=== PATIENT | female | born 1970 | race Hispanic/Latino ===

== ENCOUNTER 2020-04-02 12:16 | Observation (INO) | payer BC ==
[~2020-04-02] VITALS: Ht 152.4 cm; Wt 100.1 kg
[2020-04-02 12:51] LABS: BASOPHILS % (AUTO) 0.4 % (0.0-5.0); EOSINOPHILS % (AUTO) 2.1 % (0.0-8.0); HEMATOCRIT 42.2 % (36-48); LYMPHOCYTES % (AUTO) 35.7 % (21.0-51.0); MEAN CORPUSCULAR HEMOGLOBIN 27.8 pg (27.0-33.0); MONOCYTES % (AUTO) 5.6 % (3.0-13.0); NEUTROPHILS % (AUTO) 55.9 % (40.0-77.0); PLATELET COUNT (AUTO) 404 K/uL (130-400); RED BLOOD CELL COUNT(AUTO) 4.85 MIL/uL (4.00-5.50); RED CELL DISTRIBUTION WIDTH 13.3 % (11.0-15.5); WHITE BLOOD COUNT (AUTO) 11.8 K/uL (4.8-10.8)
[2020-04-02] MEDS ORDERED: ASPIRIN 325 MG TABLET ONE (13:08)
[2020-04-02 13:12] LABS: CREATININE 0.8 mg/dL (0.5-1.5); POTASSIUM 3.8 mmol/L (3.5-5.1)
[2020-04-02 13:18] LABS: ALBUMIN 3.7 g/dL (3.5-5.0); BILIRUBIN,TOTAL 0.3 mg/dL (0.2-1.0); TOTAL PROTEIN, SERUM 8.1 g/dL (6.0-8.3)
[2020-04-02 13:29] LABS: APPEARANCE,URINE Clear (CLEAR); BILIRUBIN,URINE Negative (NEGATIVE); COLOR,URINE Yellow (YELLOW); GLUCOSE, URINE (UA) Negative (NEGATIVE); KETONES,URINE Negative (NEGATIVE); LEUKOCYTE ESTERASE ,URINE Negative (NEGATIVE); NITRATE,URINE Negative (NEGATIVE); OCCULT BLOOD,URINE Negative (NEGATIVE); PH,URINE 7.5 (5.0-8.0); PROTEIN,URINE Negative (NEGATIVE); UROBILINOGEN,URINE 0.2 mg/dL (0.2-1.0)
[2020-04-02 13:33] LABS: INR 1.04 (0.85-1.15); PROTHROMBIN TIME 11.3 SEC (9.6-11.6)
[2020-04-02 13:34] LABS: PARTIAL THROMBOPLASTIN TIME 30.5 SEC (26.3-35.5)
[2020-04-02 13:38] LABS: AMPHET/METH SCREEN,URINE NEGATIVE (NEGATIVE); BARBITURATE SCREEN, URINE NEGATIVE (NEGATIVE); BENZODIAZEPINES SCREEN,URINE NEGATIVE (NEGATIVE); CANNABINOID SCREEN,URINE NEGATIVE (NEGATIVE); COCAINE SCREEN,URINE NEGATIVE (NEGATIVE); OPIATE SCREEN,URINE NEGATIVE (NEGATIVE); PHENCYCLIDINE SCREEN,URINE NEGATIVE (NEGATIVE)
[2020-04-02] MEDS ORDERED: NITROGLYCERIN 1GM OINT 1 INCH/1GM TD ONE (13:55)
[2020-04-02] MEDS ORDERED: METOPROLOL TARTRATE 25 MG TAB PO SCH (15:45)
[2020-04-02] MEDS ORDERED: MORPHINE 2 MG SYG IVP PRN (15:45)
[2020-04-02] MEDS ORDERED: ATORVASTATIN 20 MG TABLET PO SCH (15:45)
[2020-04-02] MEDS: NITROGLYCERIN 1GM OINT 1 INCH/1GM TD SCH ×2 (15:45→21:45)
[2020-04-02] MEDS ORDERED: LACTULOSE 20 GM/30 ML UDCUP PO PRN (16:00)
[2020-04-02] MEDS ORDERED: NITROGLYCERIN 0.4 MG SL TAB SL PRN (16:00)
[2020-04-02] MEDS ORDERED: ONDANSETRON 4MG INJ IV PRN (16:00)
[2020-04-02] MEDS ORDERED: ACETAMINOPHEN 325 MG TAB PO PRN (16:00)
[2020-04-02] MEDS ORDERED: ACETAMINOPHEN WITH CODEINE 1 TAB TAB PO PRN (16:00)
[2020-04-02 16:10] LABS: HEMOGLOBIN A1C 5.8 % (4.0-6.0)
[2020-04-02] MEDS: CEFTRIAXONE 1G VIAL IVP SCH (16:15)
[2020-04-02 16:23] LABS: CHOLESTEROL 252 mg/dL (<200); LDL DIRECT 154 mg/dL (0-99); TRIGLYCERIDES 111 mg/dL (30-200)
[2020-04-02] MEDS ORDERED: METOPROLOL TARTRATE 25 MG TAB ONE (16:32)
[2020-04-02] MEDS ORDERED: ATORVASTATIN 20 MG TABLET ONE ×2 (16:32→20:43)
[2020-04-02] MEDS ORDERED: ENOXAPARIN SODIUM 30 MG/0.3 ML SQ ONE (16:47)
[2020-04-02 16:51] LABS: HDL CHOLESTEROL 64 mg/dL (35-85)
[2020-04-02] MEDS ORDERED: FAMOTIDINE 20MG VIAL IV ONE (20:43)
[2020-04-02] MEDS ORDERED: ACETAMINOPHEN 325 MG TAB ONE (20:48)
[2020-04-02] MEDS: FAMOTIDINE 20MG VIAL IV SCH (21:00)
[2020-04-02] MEDS: ATORVASTATIN 20 MG TABLET PO SCH (21:00)
[2020-04-02] MEDS: METOPROLOL TARTRATE 25 MG TAB PO SCH (21:00)
[2020-04-03] MEDS: NITROGLYCERIN 1GM OINT 1 INCH/1GM TD SCH ×4 (03:45→21:45)
[2020-04-03 05:23] LABS: BASOPHILS % (AUTO) 0.5 % (0.0-5.0); EOSINOPHILS % (AUTO) 3.8 % (0.0-8.0); LYMPHOCYTES % (AUTO) 34.3 % (21.0-51.0); MEAN CORPUSCULAR HEMOGLOBIN 28.3 pg (27.0-33.0); MEAN CORPUSCULAR HGB CONC 32.1 g/dL (32.0-36.0); MEAN CORPUSCULAR VOLUME 88.1 fL (79-99); NEUTROPHILS % (AUTO) 53.2 % (40.0-77.0); PLATELET COUNT (AUTO) 388 K/uL (130-400); RED BLOOD CELL COUNT(AUTO) 4.77 MIL/uL (4.00-5.50); RED CELL DISTRIBUTION WIDTH 13.3 % (11.0-15.5); WHITE BLOOD COUNT (AUTO) 8.8 K/uL (4.8-10.8)
[2020-04-03 05:33] LABS: ALBUMIN 3.4 g/dL (3.5-5.0); BILIRUBIN,TOTAL 0.5 mg/dL (0.2-1.0); CREATININE 0.7 mg/dL (0.5-1.5); POTASSIUM 3.8 mmol/L (3.5-5.1); TOTAL PROTEIN, SERUM 7.4 g/dL (6.0-8.3)
[2020-04-03] MEDS ORDERED: NITROGLYCERIN 1GM OINT 1 INCH/1GM TD ONE ×2 (08:30→15:47)
[2020-04-03] MEDS ORDERED: ENOXAPARIN SODIUM 30 MG/0.3 ML SQ ONE (08:30)
[2020-04-03] MEDS ORDERED: ASPIRIN 81MG CHEW TAB ONE (08:30)
[2020-04-03] MEDS ORDERED: FAMOTIDINE 20MG VIAL IV ONE ×2 (08:31→21:33)
[2020-04-03] MEDS ORDERED: METOPROLOL TARTRATE 25 MG TAB ONE (08:31)
[2020-04-03] MEDS: METOPROLOL TARTRATE 25 MG TAB PO SCH ×2 (09:00→21:00)
[2020-04-03] MEDS: ENOXAPARIN SODIUM 30 MG/0.3 ML SQ SCH (09:00)
[2020-04-03] MEDS: FAMOTIDINE 20MG VIAL IV SCH ×2 (09:00→21:00)
[2020-04-03] MEDS: ASPIRIN 81MG CHEW TAB PO SCH (09:00)
[2020-04-03] MEDS ORDERED: ACETAMINOPHEN 325 MG TAB ONE ×3 (10:09→21:33)
[2020-04-03] MEDS ORDERED: GABA300S PO (14:20)
[2020-04-03] MEDS ORDERED: MONT10TA21 PO (14:20)
[2020-04-03] MEDS ORDERED: ESOM20CA31 PO (14:20)
[2020-04-03] MEDS ORDERED: LISI20TA24 PO (14:20)
[2020-04-03] MEDS ORDERED: LORA5SOL62 PO (14:20)
[2020-04-03] MEDS ORDERED: ASPI-988 PO (14:20)
[2020-04-03] MEDS ORDERED: CEFTRIAXONE 1G VIAL ONE (15:47)
[2020-04-03] MEDS ORDERED: 0.9%NACL 50ML 50 ML IV ONE (15:49)
[2020-04-03] MEDS ORDERED: REGADENOSON 0.4 MG/5 ML PF SYG IVP SCH (16:00)
[2020-04-03] MEDS: CEFTRIAXONE 1G VIAL IVP SCH (16:15)
[2020-04-03] MEDS ORDERED: ONDANSETRON 4MG INJ ONE (19:47)
[2020-04-03] MEDS ORDERED: 0.9% NACL 500ML IV.SOLN 500 ML IV ONE (19:48)
[2020-04-03] MEDS: ATORVASTATIN 20 MG TABLET PO SCH (21:00)
[2020-04-03] MEDS ORDERED: 0.9%NACL 1000ML 1,000 ML IV ONE (21:20)
[2020-04-03] MEDS ORDERED: ATORVASTATIN 20 MG TABLET ONE (21:32)
[2020-04-03 23:00] VITALS: BP 126/66
[2020-04-04] MEDS: NITROGLYCERIN 1GM OINT 1 INCH/1GM TD SCH (03:22)
[2020-04-04 03:50] VITALS: BP 92/62
[2020-04-04 04:02] LABS: BASOPHILS % (AUTO) 0.5 % (0.0-5.0); EOSINOPHILS % (AUTO) 2.9 % (0.0-8.0); HEMATOCRIT 41.9 % (36-48); LYMPHOCYTES % (AUTO) 35.5 % (21.0-51.0); MEAN CORPUSCULAR HEMOGLOBIN 28.5 pg (27.0-33.0); NEUTROPHILS % (AUTO) 53.9 % (40.0-77.0); PLATELET COUNT (AUTO) 357 K/uL (130-400); RED BLOOD CELL COUNT(AUTO) 4.71 MIL/uL (4.00-5.50); RED CELL DISTRIBUTION WIDTH 13.2 % (11.0-15.5); WHITE BLOOD COUNT (AUTO) 10.5 K/uL (4.8-10.8)
[2020-04-04 04:22] LABS: BILIRUBIN,TOTAL 0.4 mg/dL (0.2-1.0); CREATININE 0.8 mg/dL (0.5-1.5); POTASSIUM 3.9 mmol/L (3.5-5.1)
[2020-04-04 07:47] VITALS: BP 114/66
[2020-04-04] MEDS ORDERED: ATOR20TA65 PO (08:20)
[2020-04-04] MEDS ORDERED: METO25 PO (08:20)
[2020-04-04] MEDS: ENOXAPARIN SODIUM 30 MG/0.3 ML SQ SCH (09:00)
[2020-04-04] MEDS: METOPROLOL TARTRATE 25 MG TAB PO SCH (09:04)
[2020-04-04] MEDS: FAMOTIDINE 20MG VIAL IV SCH (09:05)
[2020-04-04] MEDS: ASPIRIN 81MG CHEW TAB PO SCH (09:06)
[2020-04-04] MEDS ORDERED: PHARMACY COMMUNICATION MISC SCH (10:15)
[2020-04-04] MEDS ORDERED: COMPOUND PO MISCELLANEOUS 1 EACH MISC MISC PRN (10:30)
[2020-04-04] MEDS ORDERED: LIDO 2% VISC 30ML+MAG/AL/SIMETH 30ML+DICYCLOMINE 20MG 10ML PO PRN ×3 (10:30)
[2020-04-04 11:02] VITALS: BP 103/51
[2020-04-04] MEDS ORDERED: SUCR1TAB28 PO (11:22)
[2020-04-04] MEDS ORDERED: ASPI-1005 PO (11:22)
== END 2020-04-04 13:51 | disposition home or self-care (01) ==
LOC: EDH 12:16 → EDHIP 15:53 → 3DH 04-03 21:03
PROVIDERS: ADMIT Internal Medicine; ATTEND Internal Medicine
DX: R07.89 Other chest pain (principal); Z20.822 Contact with and (suspected) exposure to COVID-19; I20.0 Unstable angina; K29.70 Gastritis, unspecified, without bleeding; I10 Essential (primary) hypertension; E78.5 Hyperlipidemia, unspecified; D72.829 Elevated white blood cell count, unspecified; E66.01 Morbid (severe) obesity due to excess calories; E78.00 Pure hypercholesterolemia, unspecified; I34.0 Nonrheumatic mitral (valve) insufficiency; Z82.49 Family history of ischemic heart disease and other diseases of the circulatory system; Z90.710 Acquired absence of both cervix and uterus; Z90.49 Acquired absence of other specified parts of digestive tract; Z79.899 Other long term (current) drug therapy; Z68.41 Body mass index [BMI] 40.0-44.9, adult
CPT/HCPCS: 36415 ×3; 71045; 78452; 80053 ×3; 80061; 80305; 81003; 82550; 83036; 83880; 84484 ×5; 85025 ×3; 85610; 85730; 87426; 93005 ×6; 93017; 93306; 93356; 96374; 99285; A9500 ×2; G0378 ×42; J0696; J1650 ×2; J2405; J2785; J3490 ×4; J7030; J7040; U0003

== ENCOUNTER → 2024-02-17 | Outpatient (CLI) | payer BC ==
[~2024-02-17] MED LIST: ASPI-1005 PO; ASPI1TAB7 PO; ATOR20TA65 PO; ESOM20CA31 PO; GABA300S3 PO; LISI20TA24 PO; LORA5SOL62 PO; METO25 PO; MONT-47 PO; SUCR1TAB28 PO
--- NOTE | 2024-02-17 13:04 | HMCIMG ---
MRI OF THE CERVICAL SPINE WITHOUT GADOLINIUM Clinical Information: Comparison: Technique: Sagittal T1 and T2 FSE, Sagittal STIR and Sagittal proton density images were completed through the cervical spine. Axial T1, T2 and proton density images were also acquired. FINDINGS: There is straightening of the spine consistent with spasm. There are spondylitic changes. No fractures or dislocations are identified. Vertebral body height and disc height is preserved at all levels. The bone marrow signal is normal for age. The spinal canal contents are preserved. The paraspinal muscles and other tissues show no significant abnormalities. Evaluation of the cervical spine by level: C1-C2: There is no spinal canal stenosis. No disc protrusions or extrusions are seen. There is no neural foraminal stenosis, impingement, or narrowing. C2-C3: There is no spinal canal stenosis. No disc protrusions or extrusions are seen. There is no neural foraminal stenosis, impingement, or narrowing. C3-C4: There is no spinal canal stenosis. No disc protrusions or extrusions are seen. There is no neural foraminal stenosis, impingement, or narrowing. C4-C5: There is a central zone disc protrusion causing spinal canal stenosis without cord compression. There is also bilateral neural foraminal narrowing and nerve root impingement. C5-C6: There is a central zone disc protrusion causing spinal canal stenosis without cord compression. There is also bilateral neural foraminal narrowing and nerve root impingement. C6-C7: There is a central zone disc protrusion causing spinal canal stenosis without cord compression. There is also bilateral neural foraminal narrowing and nerve root impingement. C7-T1: There is no spinal canal stenosis. No disc protrusions or extrusions are seen. There is no neural foraminal stenosis, impingement, or narrowing. Impression: Disc protrusions at C4-5, C5-6 and C6-7 causing spinal canal stenosis spinal canal stenosis and bilateral nerve root impingement. Cervical spasm.
== END | disposition home or self-care (01) ==
LOC: RAH 11:00
PROVIDERS: ATTEND Internal Medicine
DX: M48.02 Spinal stenosis, cervical region (principal)
CPT/HCPCS: 72141